=== PATIENT | female | born 1995 | race Caucasian/White ===

== ENCOUNTER 2017-04-26 17:49 | Emergency (ER) | payer BC ==
[2017-04-26 18:57] LABS: Basophils % (Auto) 0.4 % (0.0-1.8); Eosinophils % (Auto) 0.6 % (0.0-4.3); Hematocrit 47.6 % (30.3-42.9); Hemoglobin 15.8 gm/dl (10.1-14.3); Mean Corpuscular HGB Conc 33 % (30-34); Mean Corpuscular Hemoglobin 31 pg (28-32); Mean Corpuscular Volume 92 fl (79-97); Platelet Count 225 K/mm3 (140-440); Red Blood Count 5.16 M/mm3 (3.65-5.03); Red Cell Distribution Width 13.6 % (13.2-15.2); White Blood Count 5.7 K/mm3 (4.5-11.0)
[2017-04-26 19:11] LABS: Anion Gap 24 mmol/L; BUN/Creatinine Ratio 16.25; Blood Urea Nitrogen 13 mg/dL (7-17); Calcium 9.4 mg/dL (8.4-10.2); Carbon Dioxide 18 mmol/L (22-30); Glucose 78 mg/dL (65-100); Potassium 3.6 mmol/L (3.6-5.0); Sodium 139 mmol/L (137-145)
[2017-04-26 20:56] LABS: Urine Drugs of Abuse Note Disclamer
[2017-04-26 21:08] LABS: Bacteria,Urine 1+ /HPF (Negative); Bilirubin,Urine NEG (Negative); Blood,Urine NEG (Negative); Ketones,Urine 80 mg/dL (Negative); Leukocyte Esterase,Urine NEG (Negative); Mucus,Urine 2+ /HPF; Nitrite,Urine NEG (Negative); Urobilinogen,Urine < 2.0 mg/dL (<2.0)
[2017-04-26] MEDS ORDERED: ATIVAN PO ONE (21:36)
--- NOTE | 2017-04-26 23:20 | Emergency Department Report ---
HPI - General Chief Complaint: Anxiety Time Seen by Provider: 04/26/17 20:53 - HPI HPI: PATIENT WITH H/O ANXIETY, THINKS SHE IS HAVING PANIC ATTACK, FEELING LIKE ARMS AND LEGS ARE CRAMPING. SHE IS FEELING SHORT OF BREATH AND ANXIOUS. PATIENT STATES COMPLICATED CHILDHOOD, AND THINKING ABOUT HER LIFE LEADS TO ANXIOUS FEELING. PATIENT DENIES ANY CHEST PAIN, NO HOMOCIDAL IDEATIONS, NO SUICIDAL IDEATIONS. ED Past Medical Hx - Past Medical History Previous Medical History?: Yes Hx Psychiatric Treatment: Yes (Anxiety, Depression) - Surgical History Past Surgical History?: No - Family History Family history: hypertension - Social History Smoking Status: Current Every Day Smoker Substance Use Type: Marijuana - Medications Home Medications: Home Medications Medication Instructions Recorded Confirmed Last Taken Type hydrOXYzine HCL [Atarax] 25 mg PO Q6HR PRN #20 tablet 04/27/17 Unknown Rx ED Review of Systems ROS: Stated complaint: ANXIETY/DEPRESSION Other details as noted in HPI Comment: All other systems reviewed and negative Psychiatric: anxiety, depression Physical Exam - Physical Exam Vital Signs: Vital Signs 04/26/17 04/26/17 18:09 20:27 Temperature 98 F Pulse Rate 104 H Respiratory 18 18 Rate Blood Pressure 116/61 O2 Sat by Pulse 100 100 Oximetry Physical Exam: GENERAL: The patient is well-developed well-nourished. HEENT: Normocephalic. Atraumatic. Extraocular motions are intact. Patient has moist mucous membranes. NECK: Supple. No meningitic signs are noted. There is no adenopathy noted. CHEST/LUNGS: Clear to auscultation. There is no respiratory distress noted. HEART/CARDIOVASCULAR: Regular. There is no tachycardia. There is no gallop rub or murmur. ABDOMEN: Abdomen is soft, nontender. Patient has normal bowel sounds. There is no abdominal distention. SKIN: There is no rash. There is no edema. There is no diaphoresis. NEURO: The patient is awake, alert, and oriented. The patient is cooperative. The patient has no focal neurologic deficits. The patient has normal speech and gait. Cranial nerves II through XII grossly intact, no drift. Negative Romberg MUSCULOSKELETAL: good rom in all ext PSYCH; APPEARS ANXIOUS, NO SI, NO HI ED Course Vital Signs 04/26/17 04/26/17 18:09 20:27 Temperature 98 F Pulse Rate 104 H Respiratory 18 18 Rate Blood Pressure 116/61 O2 Sat by Pulse 100 100 Oximetry ED Medical Decision Making - Lab Data Result diagrams: 04/26/17 18:40 04/26/17 18:40 Critical care attestation.: If time is entered above; I have spent that time in minutes in the direct care of this critically ill patient, excluding procedure time. ED Disposition Clinical Impression: Anxiety attack Disposition: DC-01 TO HOME OR SELFCARE Is pt being admited?: No Does the pt Need Aspirin: No Condition: Stable Prescriptions: hydrOXYzine HCL [Atarax] 25 mg PO Q6HR PRN #20 tablet PRN Reason: Itching Referrals: PRIMARY CARE, [Primary Care Provider] - 3-5 Days
[2017-04-27 00:37] VITALS: BP 101/74
== END 2017-04-27 00:15 | disposition home or self-care (01) ==
LOC: ED 17:49
DX: F41.9 Anxiety disorder, unspecified (principal); F32.9 Major depressive disorder, single episode, unspecified; F17.200 Nicotine dependence, unspecified, uncomplicated; F12.10 Cannabis abuse, uncomplicated
CPT/HCPCS: 36415; 80048; 80307; 81001; 84703; 85025; 99284; G0480; 80320